=== PATIENT | male | born 1955 | race Caucasian/White ===

== ENCOUNTER 2018-08-26 02:34 | Inpatient (IN) | payer MEDICARE, OTHER ==
[2018-08-26 03:27] LABS: ADD MAN DIFF? NO
[2018-08-26 03:48] LABS: INR 1.07; PT RATIO 1.1
[2018-08-26 03:49] LABS: PARTIAL THROMBOPLASTIN TIME 24.5 Sec (23.0-35.0)
[2018-08-26 03:53] LABS: WHITE BLOOD COUNT 4.6 10^3/ul (4.8-10.8)
[2018-08-26 03:53] LABS: ABNORMAL IP MESSAGE 1; HEMATOCRIT 36.3 % (42.0-52.0); HEMOGLOBIN 12.9 g/dl (14.0-18.0); LYMPHOCYTES # 0.3 10^3/ul (0.8-2.9); LYMPHOCYTES % 6.8 % (15.0-51.0); MEAN CORPUSCULAR HEMOGLOBIN 33.6 pg (29.0-33.0); MEAN CORPUSCULAR HGB CONC 35.5 g/dl (32.0-37.0); MEAN CORPUSCULAR VOLUME 94.5 fl (82.0-101.0); MEAN PLATELET VOLUME 10.7 fl (7.4-10.4); MONOCYTE # 0.2 10^3/ul (0.3-0.9); MONOCYTES % 4.4 % (0.0-11.0); NEUTROPHILS % 87.7 % (39.0-77.0); PLATELET COUNT 63 10^3/UL (140-415); POSITIVE DIFF @See below; RED BLOOD COUNT 3.84 10^6/ul (4.70-6.10); RED CELL DISTRIBUTION WIDTH 15.8 % (11.5-14.5)
[2018-08-26 03:54] LABS: ANION GAP 13 (5-13); BLOOD UREA NITROGEN 20 mg/dl (7-20); CALCIUM 9.1 mg/dl (8.4-10.2); CARBON DIOXIDE 23 mmol/L (21-31); CHLORIDE 97 mmol/L (97-110); CREATININE 1.01 mg/dl (0.61-1.24); Estimated GFR > 60 mL/min (>60); GLUCOSE 128 mg/dl (70-220); POTASSIUM 4.9 mmol/L (3.5-5.1); SODIUM 133 mmol/L (135-144)
[2018-08-26] MEDS: SOD CHLORIDE 0.9% 1,000 ML IV ×3 (03:54→16:44)
[2018-08-26 04:05] LABS: TROPONIN-I < 0.012 ng/ml (0.000-0.120)
[2018-08-26] MEDS ORDERED: DOCUSATE SODIUM 100 MG CAP PO (06:00)
[2018-08-26] MEDS ORDERED: BISACODYL (EC) 5 MG TAB PO (06:00)
[2018-08-26] MEDS ORDERED: NACL 0.9% 3 ML SYG IV (06:00)
[2018-08-26] MEDS: ACETAMINOPHEN 325 MG TAB PO ×3 (06:21→21:42)
[2018-08-26] MEDS: PANTOPRAZOLE (EC) 40 MG TAB PO (06:21)
[2018-08-26] MEDS ORDERED: VANCOMYCIN IV PER PHARMACY XX (07:00)
[2018-08-26 07:53] LABS: LACTIC ACID 2.7 mmol/L (0.5-2.0)
[2018-08-26] MEDS: PIPER-TAZO 3.375 GM IV (PMX) 100 ML IVPB ×3 (08:00→17:29)
[2018-08-26] MEDS ORDERED: HEPARIN 5,000 UNIT/1 ML VIAL SC (09:00)
[2018-08-26] MEDS ORDERED: BIOTIN 10000 MCG PO (09:00)
[2018-08-26] MEDS: VANCOMYCIN HCL 1.75 GM in SOD CHLORIDE 0.9% 500 ML IVPB (10:02)
[2018-08-26] MEDS: LEVOTHYROXINE 50 MCG TAB PO (10:02)
[2018-08-26] MEDS: CALCIUM/VITAMIN D (500/200) TAB PO (10:02)
[2018-08-26] MEDS: CHLORPROMAZINE 25 MG TAB PO ×3 (11:20→21:43)
[2018-08-26] MEDS: PYRIDOXINE 50 MG TAB PO (11:20)
[2018-08-26 12:40] LABS: LACTIC ACID 3.7 mmol/L (0.5-2.0)
[2018-08-26] MEDS: SOD CHLORIDE 0.9% IV (13:22)
[2018-08-26 18:21] LABS: ADD UMIC YES; UR ASCORBIC ACID NEGATIVE (NEGATIVE); UR BILIRUBIN (Dip) NEGATIVE (NEGATIVE); UR BLOOD (Dip) NEGATIVE (NEGATIVE); UR CLARITY CLEAR (CLEAR); UR COLOR YELLOW (YELLOW); UR GLUCOSE (Dip) NEGATIVE (NEGATIVE); UR KETONES (Dip) NEGATIVE (NEGATIVE); UR LEUKOCYTE ESTERASE (Dip) NEGATIVE Leu/ul (NEGATIVE); UR NITRITE (Dip) NEGATIVE (NEGATIVE); UR RBC 3 /HPF (0-5); UR SPECIFIC GRAVITY (Dip) 1.021 (1.003-1.030); UR TOTAL PROTEIN (Dip) 2+ mg/dl (NEGATIVE); UR UROBILINOGEN (Dip) 1+ mg/dL (NEGATIVE); UR WBC 1 /HPF (0-5)
[2018-08-26] MEDS: ATORVASTATIN 80 MG TAB PO (21:42)
[2018-08-26] MEDS: TAMSULOSIN (SR) 0.4 MG CAP PO (21:42)
[2018-08-26] MEDS: VANCOMYCIN 1 GM 250 ML IVPB (21:43)
[2018-08-26] MEDS: SOD CHLORIDE 0.9% 100 ML (23:03)
[2018-08-26] MEDS: IOHEXOL 300MG/ML 150 ML BTL (23:03)
[2018-08-27] MEDS: ALBUTEROL/IPRATROPIUM (NEB) 3 ML AMP HHN (00:06)
[2018-08-27] MEDS: ACETAMINOPHEN 1000MG/100ML IV 100 ML IVPB ×3 (01:00→13:42)
[2018-08-27] MEDS: PIPER-TAZO 3.375 GM IV (PMX) 100 ML IVPB ×4 (01:38→17:47)
[2018-08-27] MEDS: FUROSEMIDE 20 MG INJ IV ×2 (01:39→17:26)
[2018-08-27] MEDS: PANTOPRAZOLE (EC) 40 MG TAB PO (06:47)
[2018-08-27] MEDS: LEVOTHYROXINE 50 MCG TAB PO (06:47)
[2018-08-27 07:02] LABS: ADD MAN DIFF? NO
[2018-08-27 07:14] LABS: ABNORMAL IP MESSAGE 1; HEMATOCRIT 27.9 % (42.0-52.0); HEMOGLOBIN 9.9 g/dl (14.0-18.0); MEAN CORPUSCULAR HGB CONC 35.5 g/dl (32.0-37.0); PLATELET COUNT 68 10^3/UL (140-415); POSITIVE DIFF @See below; RED CELL DISTRIBUTION WIDTH 15.5 % (11.5-14.5)
[2018-08-27 07:14] LABS: WHITE BLOOD COUNT 4.7 10^3/ul (4.8-10.8)
[2018-08-27 07:39] LABS: ALANINE AMINOTRANSFERASE 28 IU/L (13-69); ALBUMIN 2.8 g/dl (3.3-4.9); ALBUMIN/GLOBULIN RATIO 1.12; ALKALINE PHOSPHATASE 71 IU/L (42-121); ANION GAP 8 (5-13); ASPARTATE AMINO TRANSFERASE 36 IU/L (15-46); BILIRUBIN,INDIRECT 0.8 mg/dl (0-1.1); BILIRUBIN,TOTAL 0.8 mg/dl (0.2-1.3); BLOOD UREA NITROGEN 16 mg/dl (7-20); CARBON DIOXIDE 21 mmol/L (21-31); CHLORIDE 97 mmol/L (97-110); CREATININE 0.93 mg/dl (0.61-1.24); Estimated GFR > 60 mL/min (>60); GLUCOSE 122 mg/dl (70-220); MAGNESIUM 1.7 mg/dl (1.7-2.5); POTASSIUM 3.7 mmol/L (3.5-5.1); SODIUM 126 mmol/L (135-144); TOTAL PROTEIN 5.3 g/dl (6.1-8.1)
[2018-08-27 07:44] LABS: HEMOGLOBIN A1C 5.9 % (0-5.9)
[2018-08-27] MEDS: CHLORPROMAZINE 25 MG TAB PO (08:37)
[2018-08-27] MEDS: PYRIDOXINE 50 MG TAB PO (08:37)
[2018-08-27] MEDS: VANCOMYCIN 1 GM 250 ML IVPB ×2 (08:38→21:27)
[2018-08-27] MEDS: CALCIUM/VITAMIN D (500/200) TAB PO (08:38)
[2018-08-27 09:16] LABS: ANISOCYTOSIS 1+ (0-0); BAND NEUTROPHILS % (M) 1 % (0-4); LYMPHOCYTES #M 0.3 10^3/ul (0.8-2.9); LYMPHOCYTES % (M) 8 % (15-51); MONOCYTE #M 0.5 10^3/ul (0.3-0.9); MONOCYTES % (M) 12 % (0-11); PLATELET ESTIMATE DECREASED; POIKILOCYTOSIS 1+ (0-0); SEG NEUT #M 3.7 10^3/ul (1.6-7.5); SEGMENTED NEUTROPHILS (M) % 79 % (39-77); SMUDGE%M 1 % (0-0)
[2018-08-27] MEDS: MAGNESIUM SULFATE 2 GM/50 ML 50 ML IVPB (11:46)
[2018-08-27] MEDS: DEXTROSE 5%-0.45% NACL 1,000 ML IV (11:46)
[2018-08-27 11:49] LABS: LACTIC ACID 2.7 mmol/L (0.5-2.0)
[2018-08-27 12:23] LABS: ANION GAP 8 (5-13); BLOOD UREA NITROGEN 17 mg/dl (7-20); CARBON DIOXIDE 19 mmol/L (21-31); CHLORIDE 98 mmol/L (97-110); CREATININE 0.91 mg/dl (0.61-1.24); Estimated GFR > 60 mL/min (>60); GLUCOSE 122 mg/dl (70-220); POTASSIUM 3.7 mmol/L (3.5-5.1); SODIUM 125 mmol/L (135-144)
[2018-08-27] MEDS: CASPOFUNGIN 70 MG in SOD CHLORIDE 0.9% 250 ML IVPB (16:42)
[2018-08-27] MEDS: DEXTROSE 5%-0.9% NACL 1,000 ML IV (16:42)
[2018-08-27 17:16] LABS: SODIUM,URINE RANDOM 31 mmol/L (30-90)
[2018-08-27 17:32] LABS: CREATINE KINASE 137 IU/L (23-200)
[2018-08-27 17:44] LABS: CK INDEX 0.3; CK-MB 0.35 ng/ml (0.0-2.4); TROPONIN-I < 0.012 ng/ml (0.000-0.120)
[2018-08-27 20:49] LABS: VANCOMYCIN,TROUGH 6.2 ug/ml (10.0-20.0)
[2018-08-27] MEDS: ATORVASTATIN 80 MG TAB PO (21:27)
[2018-08-27] MEDS: TAMSULOSIN (SR) 0.4 MG CAP PO (21:27)
[2018-08-27] MEDS: ACETAMINOPHEN 325 MG TAB PO (21:27)
[2018-08-27] MEDS: SODIUM CHLORIDE 1 GM TAB PO (21:59)
[2018-08-27 23:48] LABS: CREATINE KINASE 157 IU/L (23-200)
[2018-08-27 23:59] LABS: CK INDEX 0.1; CK-MB < 0.22 ng/ml (0.0-2.4); TROPONIN-I < 0.012 ng/ml (0.000-0.120)
[2018-08-28] MEDS: PIPER-TAZO 3.375 GM IV (PMX) 100 ML IVPB ×4 (00:43→17:50)
[2018-08-28] MEDS: VANCOMYCIN 1 GM 250 ML IVPB ×3 (04:43→21:15)
[2018-08-28] MEDS: ACETAMINOPHEN 325 MG TAB PO ×3 (04:44→22:44)
[2018-08-28] MEDS: DEXTROSE 5%-0.9% NACL 1,000 ML IV ×2 (05:20→18:30)
[2018-08-28] MEDS: PANTOPRAZOLE (EC) 40 MG TAB PO (06:00)
[2018-08-28] MEDS: PANTOPRAZOLE 40 MG INJ IV (06:42)
[2018-08-28] MEDS: LEVOTHYROXINE 50 MCG TAB PO ×2 (06:42→09:38)
[2018-08-28 07:06] LABS: ABNORMAL IP MESSAGE 1; HEMATOCRIT 26.3 % (42.0-52.0); HEMOGLOBIN 9.4 g/dl (14.0-18.0); MEAN CORPUSCULAR HGB CONC 35.7 g/dl (32.0-37.0); MEAN CORPUSCULAR VOLUME 92.3 fl (82.0-101.0); MEAN PLATELET VOLUME 11.2 fl (7.4-10.4); PLATELET COUNT 75 10^3/UL (140-415); POSITIVE DIFF @See below; RED BLOOD COUNT 2.85 10^6/ul (4.70-6.10); RED CELL DISTRIBUTION WIDTH 15.2 % (11.5-14.5)
[2018-08-28 07:06] LABS: WHITE BLOOD COUNT 4.4 10^3/ul (4.8-10.8)
[2018-08-28 07:11] LABS: ADD MAN DIFF? YES
[2018-08-28 07:25] LABS: LACTIC ACID 1.4 mmol/L (0.5-2.0)
[2018-08-28 07:56] LABS: ANISOCYTOSIS 1+ (0-0); BAND NEUTROPHILS #M 0.2 10^3/ul (0.0-0.6); BAND NEUTROPHILS % (M) 6 % (0-4); GIANT THROMBO% (M) 2 % (0-0); LYMPHOCYTES #M 0.5 10^3/ul (0.8-2.9); LYMPHOCYTES % (M) 13 % (15-51); MONOCYTE #M 0.4 10^3/ul (0.3-0.9); MONOCYTES % (M) 11 % (0-11); PLATELET ESTIMATE DECREASED; POIKILOCYTOSIS 1+ (0-0); REACTIVE LYMPHOCYTES% (M) 2 % (0-0); SEGMENTED NEUTROPHILS (M) % 68 % (39-77); SMUDGE%M 42 % (0-0); SPHEROCYTES 1+ (0-0)
[2018-08-28] MEDS: IOHEXOL 14.3 MG(I)/ML (ADULT) BTL PO (09:00)
[2018-08-28] MEDS: CALCIUM/VITAMIN D (500/200) TAB PO (09:06)
[2018-08-28] MEDS: PYRIDOXINE 50 MG TAB PO (09:07)
[2018-08-28] MEDS: SODIUM CHLORIDE 1 GM TAB PO ×2 (09:38→21:13)
[2018-08-28] MEDS: OSELTAMIVIR 75 MG CAP PO ×2 (11:34→21:14)
[2018-08-28 12:16] LABS: ANION GAP 6 (5-13); BLOOD UREA NITROGEN 18 mg/dl (7-20); CALCIUM 7.5 mg/dl (8.4-10.2); CARBON DIOXIDE 21 mmol/L (21-31); CHLORIDE 98 mmol/L (97-110); CREATININE 0.82 mg/dl (0.61-1.24); Estimated GFR > 60 mL/min (>60); GLUCOSE 134 mg/dl (70-220); POTASSIUM 3.5 mmol/L (3.5-5.1); SODIUM 125 mmol/L (135-144)
[2018-08-28] MEDS: CASPOFUNGIN 50 MG in SOD CHLORIDE 0.9% 250 ML IVPB (15:47)
[2018-08-28] MEDS: ATORVASTATIN 80 MG TAB PO (21:13)
[2018-08-28] MEDS: TAMSULOSIN (SR) 0.4 MG CAP PO (21:14)
[2018-08-29] MEDS: PIPER-TAZO 3.375 GM IV (PMX) 100 ML IVPB ×2 (00:17→05:07)
[2018-08-29] MEDS: PANTOPRAZOLE (EC) 40 MG TAB PO (05:01)
[2018-08-29] MEDS: PANTOPRAZOLE 40 MG INJ IV (05:07)
[2018-08-29 05:17] LABS: ADD MAN DIFF? NO
[2018-08-29 05:21] LABS: ABNORMAL IP MESSAGE 1; BASOPHILS % 0.2 % (0.0-2.0); EOSINOPHILS % 0.2 % (0.0-7.0); HEMATOCRIT 27.3 % (42.0-52.0); HEMOGLOBIN 9.7 g/dl (14.0-18.0); LYMPHOCYTES # 0.4 10^3/ul (0.8-2.9); LYMPHOCYTES % 8.4 % (15.0-51.0); MEAN CORPUSCULAR HEMOGLOBIN 32.9 pg (29.0-33.0); MEAN CORPUSCULAR HGB CONC 35.5 g/dl (32.0-37.0); MEAN CORPUSCULAR VOLUME 92.5 fl (82.0-101.0); MEAN PLATELET VOLUME 11.2 fl (7.4-10.4); MONOCYTE # 0.6 10^3/ul (0.3-0.9); MONOCYTES % 14.1 % (0.0-11.0); NEUTROPHIL # 3.5 10^3/ul (1.6-7.5); NEUTROPHILS % 76.2 % (39.0-77.0); PLATELET COUNT 108 10^3/UL (140-415); POSITIVE DIFF @See below; RED BLOOD COUNT 2.95 10^6/ul (4.70-6.10); RED CELL DISTRIBUTION WIDTH 15.3 % (11.5-14.5)
[2018-08-29 05:21] LABS: WHITE BLOOD COUNT 4.6 10^3/ul (4.8-10.8)
[2018-08-29 05:29] LABS: VANCOMYCIN,TROUGH 10.5 ug/ml (10.0-20.0)
[2018-08-29 05:36] LABS: INR 1.14; PROTIME 14.7 Sec (11.9-14.9); PT RATIO 1.1
[2018-08-29 05:37] LABS: PARTIAL THROMBOPLASTIN TIME 36.6 Sec (23.0-35.0)
[2018-08-29] MEDS: VANCOMYCIN 1 GM 250 ML IVPB ×2 (05:56→12:09)
[2018-08-29] MEDS: ACETAMINOPHEN 325 MG TAB PO ×3 (05:59→19:08)
[2018-08-29] MEDS: LEVOTHYROXINE 50 MCG TAB PO (06:00)
[2018-08-29 06:04] LABS: ALANINE AMINOTRANSFERASE 34 IU/L (13-69); ALBUMIN 2.6 g/dl (3.3-4.9); ALKALINE PHOSPHATASE 61 IU/L (42-121); ANION GAP 11 (5-13); ASPARTATE AMINO TRANSFERASE 53 IU/L (15-46); BILIRUBIN,INDIRECT 0.7 mg/dl (0-1.1); BILIRUBIN,TOTAL 0.7 mg/dl (0.2-1.3); BLOOD UREA NITROGEN 15 mg/dl (7-20); CALCIUM 7.4 mg/dl (8.4-10.2); CARBON DIOXIDE 19 mmol/L (21-31); CHLORIDE 100 mmol/L (97-110); CREATININE 0.73 mg/dl (0.61-1.24); Estimated GFR > 60 mL/min (>60); GLUCOSE 123 mg/dl (70-220); POTASSIUM 3.5 mmol/L (3.5-5.1); SODIUM 130 mmol/L (135-144); TOTAL PROTEIN 5.2 g/dl (6.1-8.1)
[2018-08-29] MEDS: DEXTROSE 5%-0.9% NACL 1,000 ML IV ×2 (08:00→21:20)
[2018-08-29] MEDS: PYRIDOXINE 50 MG TAB PO (08:42)
[2018-08-29] MEDS: CALCIUM/VITAMIN D (500/200) TAB PO (08:42)
[2018-08-29] MEDS: OSELTAMIVIR 75 MG CAP PO ×2 (08:42→20:14)
[2018-08-29] MEDS: SODIUM CHLORIDE 1 GM TAB PO ×2 (09:00→20:14)
[2018-08-29 12:09] LABS: LIPASE 100 U/L (23-300)
[2018-08-29] MEDS: MEROPENEM 1 GM/50ML(PMX) 50 ML IVPB ×2 (14:35→21:28)
[2018-08-29] MEDS: CASPOFUNGIN 50 MG in SOD CHLORIDE 0.9% 250 ML IVPB (16:00)
[2018-08-29] MEDS: ATORVASTATIN 80 MG TAB PO (20:14)
[2018-08-29] MEDS: TAMSULOSIN (SR) 0.4 MG CAP PO (20:14)
[2018-08-29] MEDS: VANCOMYCIN HCL 1.25 GM in SOD CHLORIDE 0.9% 250 ML IVPB (20:15)
[2018-08-29] MEDS: KETOROLAC 15 MG INJ IV (21:28)
[2018-08-29] MEDS: ONDANSETRON 4 MG INJ IV (23:09)
[2018-08-30] MEDS: ACETAMINOPHEN 325 MG TAB PO ×2 (01:31→21:17)
[2018-08-30] MEDS: PANTOPRAZOLE 40 MG INJ IV (05:09)
[2018-08-30] MEDS: MEROPENEM 1 GM/50ML(PMX) 50 ML IVPB ×3 (05:09→21:07)
[2018-08-30] MEDS: VANCOMYCIN HCL 1.25 GM in SOD CHLORIDE 0.9% 250 ML IVPB ×2 (05:55→14:21)
[2018-08-30] MEDS: LEVOTHYROXINE 50 MCG TAB PO (06:53)
[2018-08-30 08:27] LABS: ADD MAN DIFF? NO
[2018-08-30 08:33] LABS: ABNORMAL IP MESSAGE 1; BASOPHILS % 0.3 % (0.0-2.0); EOSINOPHILS % 0.5 % (0.0-7.0); HEMATOCRIT 30.2 % (42.0-52.0); HEMOGLOBIN 10.6 g/dl (14.0-18.0); LYMPHOCYTES # 0.5 10^3/ul (0.8-2.9); LYMPHOCYTES % 11.8 % (15.0-51.0); MEAN CORPUSCULAR HEMOGLOBIN 33.2 pg (29.0-33.0); MEAN CORPUSCULAR HGB CONC 35.1 g/dl (32.0-37.0); MEAN CORPUSCULAR VOLUME 94.7 fl (82.0-101.0); MEAN PLATELET VOLUME 10.8 fl (7.4-10.4); MONOCYTE # 0.5 10^3/ul (0.3-0.9); MONOCYTES % 13.6 % (0.0-11.0); NEUTROPHIL # 2.8 10^3/ul (1.6-7.5); PLATELET COUNT 143 10^3/UL (140-415); POSITIVE DIFF @See below; RED BLOOD COUNT 3.19 10^6/ul (4.70-6.10); RED CELL DISTRIBUTION WIDTH 15.6 % (11.5-14.5)
[2018-08-30 08:33] LABS: WHITE BLOOD COUNT 3.8 10^3/ul (4.8-10.8)
[2018-08-30] MEDS: OSELTAMIVIR 75 MG CAP PO (08:35)
[2018-08-30] MEDS: SODIUM CHLORIDE 1 GM TAB PO ×2 (08:35→21:07)
[2018-08-30] MEDS: CALCIUM/VITAMIN D (500/200) TAB PO (08:36)
[2018-08-30] MEDS: PYRIDOXINE 50 MG TAB PO (08:36)
[2018-08-30 11:16] LABS: PROCALCITONIN 1.79 ng/mL (<0.10)
[2018-08-30] MEDS: DEXTROSE 5%-0.9% NACL 1,000 ML IV (11:21)
[2018-08-30] MEDS: KETOROLAC 15 MG INJ IV (13:45)
[2018-08-30] MEDS: CASPOFUNGIN 50 MG in SOD CHLORIDE 0.9% 250 ML IVPB (18:08)
[2018-08-30] MEDS: TAMSULOSIN (SR) 0.4 MG CAP PO (21:07)
[2018-08-31] MEDS: SOD CHLORIDE 0.9% 500 ML IV (03:23)
[2018-08-31 04:50] LABS: AADO2 Arterial 57.1 mmHg (7.0-24.0); Allen Test ACCEPTAB; Arterial Base Excess -3.7 mmol/L (-3.0-3); Arterial Blood Gas Oxygen Sat 96.7 mmHG (95.0-98.0); Arterial COHb 0.1 % (0.0-3.0); Arterial Fraction of Oxyhgb 96.3 % (93.0-99.0); Arterial HCO3 19.6 mmol/L (22.0-26.0); Arterial MetHb 0.3 % (0.0-1.5); Arterial pCO2 30.1 mmhg (35-45); MODE NASAL CANNULA; Site Left Radial
[2018-08-31] MEDS: HALOPERIDOL 5 MG INJ IM ×2 (05:12→18:51)
[2018-08-31] MEDS: MEROPENEM 1 GM/50ML(PMX) 50 ML IVPB ×3 (06:36→22:18)
[2018-08-31] MEDS: PANTOPRAZOLE 40 MG INJ IV (06:36)
[2018-08-31] MEDS: LEVOTHYROXINE 50 MCG TAB PO (06:36)
[2018-08-31 08:15] LABS: ADD MAN DIFF? NO
[2018-08-31 08:24] LABS: ABNORMAL IP MESSAGE 1; BASOPHILS % 0.3 % (0.0-2.0); EOSINOPHILS % 0.2 % (0.0-7.0); HEMATOCRIT 31.9 % (42.0-52.0); HEMOGLOBIN 11.3 g/dl (14.0-18.0); LYMPHOCYTES # 0.3 10^3/ul (0.8-2.9); MEAN CORPUSCULAR HEMOGLOBIN 32.9 pg (29.0-33.0); MEAN CORPUSCULAR HGB CONC 35.4 g/dl (32.0-37.0); MEAN PLATELET VOLUME 10.5 fl (7.4-10.4); MONOCYTE # 0.6 10^3/ul (0.3-0.9); MONOCYTES % 9.7 % (0.0-11.0); NEUTROPHIL # 5.5 10^3/ul (1.6-7.5); NEUTROPHILS % 83.7 % (39.0-77.0); PLATELET COUNT 189 10^3/UL (140-415); POSITIVE DIFF @See below; RED BLOOD COUNT 3.43 10^6/ul (4.70-6.10); RED CELL DISTRIBUTION WIDTH 15.8 % (11.5-14.5)
[2018-08-31 08:24] LABS: WHITE BLOOD COUNT 6.6 10^3/ul (4.8-10.8)
[2018-08-31 08:34] LABS: ALANINE AMINOTRANSFERASE 74 IU/L (13-69); ALBUMIN 2.6 g/dl (3.3-4.9); ALBUMIN/GLOBULIN RATIO 1.04; ALKALINE PHOSPHATASE 100 IU/L (42-121); ANION GAP 9 (5-13); ASPARTATE AMINO TRANSFERASE 84 IU/L (15-46); BILIRUBIN,INDIRECT 0.7 mg/dl (0-1.1); BILIRUBIN,TOTAL 0.7 mg/dl (0.2-1.3); BLOOD UREA NITROGEN 13 mg/dl (7-20); CALCIUM 7.9 mg/dl (8.4-10.2); CARBON DIOXIDE 22 mmol/L (21-31); CHLORIDE 100 mmol/L (97-110); CREATININE 0.62 mg/dl (0.61-1.24); Estimated GFR > 60 mL/min (>60); GLUCOSE 116 mg/dl (70-220); POTASSIUM 3.1 mmol/L (3.5-5.1); SODIUM 131 mmol/L (135-144); TOTAL PROTEIN 5.1 g/dl (6.1-8.1)
[2018-08-31 08:36] LABS: MAGNESIUM 1.9 mg/dl (1.7-2.5)
[2018-08-31] MEDS: PYRIDOXINE 50 MG TAB PO (09:07)
[2018-08-31] MEDS: SODIUM CHLORIDE 1 GM TAB PO ×2 (09:07→20:25)
[2018-08-31] MEDS: ALBUTEROL/IPRATROPIUM (NEB) 3 ML AMP HHN ×2 (10:52→18:00)
[2018-08-31 14:46] LABS: PROCALCITONIN 1.98 ng/mL (<0.10)
[2018-08-31] MEDS: SOD CHLORIDE 0.9% 100 ML (19:58)
[2018-08-31] MEDS: IOHEXOL 300MG/ML 150 ML BTL (19:58)
[2018-08-31] MEDS: ONDANSETRON 4 MG INJ IV (20:18)
[2018-08-31] MEDS: OSELTAMIVIR 75 MG CAP PO (20:25)
[2018-08-31] MEDS: TAMSULOSIN (SR) 0.4 MG CAP PO (20:25)
[2018-09-01] MEDS: ALBUTEROL/IPRATROPIUM (NEB) 3 ML AMP HHN (02:05)
[2018-09-01] MEDS: PANTOPRAZOLE 40 MG INJ IV (07:10)
[2018-09-01] MEDS: LEVOTHYROXINE 50 MCG TAB PO (07:10)
[2018-09-01] MEDS: MEROPENEM 1 GM/50ML(PMX) 50 ML IVPB (07:10)
[2018-09-01] MEDS: BENZOCAINE 10% 7 GM GEL MM ×3 (07:10→21:11)
[2018-09-01 07:54] LABS: ANION GAP 9 (5-13); BLOOD UREA NITROGEN 12 mg/dl (7-20); CALCIUM 7.8 mg/dl (8.4-10.2); CARBON DIOXIDE 22 mmol/L (21-31); CHLORIDE 97 mmol/L (97-110); Estimated GFR > 60 mL/min (>60); GLUCOSE 116 mg/dl (70-220); POTASSIUM 3.1 mmol/L (3.5-5.1); SODIUM 128 mmol/L (135-144)
[2018-09-01] MEDS: SODIUM CHLORIDE 1 GM TAB PO ×2 (08:44→21:10)
[2018-09-01] MEDS: PYRIDOXINE 50 MG TAB PO (08:45)
[2018-09-01] MEDS: OSELTAMIVIR 75 MG CAP PO ×2 (08:57→21:10)
[2018-09-01] MEDS: POTASSIUM CHLORIDE (SR) 20 MEQ TAB PO (10:44)
[2018-09-01 12:49] LABS: AMMONIA < 9 umol/l (9-30)
[2018-09-01] MEDS ORDERED: LACTULOSE 30ML CUP PO (14:00)
[2018-09-01] MEDS: TAMSULOSIN (SR) 0.4 MG CAP PO (21:10)
[2018-09-01] MEDS: POTASSIUM CHLORIDE 40 MEQ in SOD CHLORIDE 0.9% 1,000 ML IV (21:11)
[2018-09-01] MEDS: ACETAMINOPHEN 325 MG TAB PO (23:02)
[2018-09-02] MEDS ORDERED: PANTOPRAZOLE (EC) 40 MG TAB PO (06:00)
[2018-09-02] MEDS: LEVOFLOXACIN 500 MG TAB PO (06:14)
[2018-09-02] MEDS: LEVOTHYROXINE 50 MCG TAB PO (06:14)
[2018-09-02 06:46] LABS: ADD MAN DIFF? NO
[2018-09-02 06:49] LABS: WHITE BLOOD COUNT 4.8 10^3/ul (4.8-10.8)
[2018-09-02 06:49] LABS: BASOPHILS % 0.4 % (0.0-2.0); EOSINOPHILS % 0.2 % (0.0-7.0); HEMATOCRIT 29.3 % (42.0-52.0); HEMOGLOBIN 10.2 g/dl (14.0-18.0); LYMPHOCYTES # 0.8 10^3/ul (0.8-2.9); LYMPHOCYTES % 17.7 % (15.0-51.0); MEAN CORPUSCULAR HGB CONC 34.8 g/dl (32.0-37.0); MEAN CORPUSCULAR VOLUME 94.8 fl (82.0-101.0); MEAN PLATELET VOLUME 9.9 fl (7.4-10.4); MONOCYTE # 0.7 10^3/ul (0.3-0.9); MONOCYTES % 14.5 % (0.0-11.0); NEUTROPHIL # 3.2 10^3/ul (1.6-7.5); NEUTROPHILS % 66.8 % (39.0-77.0); PLATELET COUNT 183 10^3/UL (140-415); RED BLOOD COUNT 3.09 10^6/ul (4.70-6.10); RED CELL DISTRIBUTION WIDTH 17.4 % (11.5-14.5)
[2018-09-02 07:13] LABS: ANION GAP 7 (5-13); BLOOD UREA NITROGEN 10 mg/dl (7-20); CARBON DIOXIDE 23 mmol/L (21-31); CHLORIDE 105 mmol/L (97-110); CREATININE 0.54 mg/dl (0.61-1.24); Estimated GFR > 60 mL/min (>60); GLUCOSE 91 mg/dl (70-220); POTASSIUM 3.8 mmol/L (3.5-5.1); SODIUM 135 mmol/L (135-144)
[2018-09-02] MEDS: POTASSIUM CHLORIDE 40 MEQ in SOD CHLORIDE 0.9% 1,000 ML IV ×2 (07:29→08:43)
[2018-09-02] MEDS: PYRIDOXINE 50 MG TAB PO (08:44)
[2018-09-02] MEDS: OSELTAMIVIR 75 MG CAP PO (08:44)
[2018-09-02] MEDS: SODIUM CHLORIDE 1 GM TAB PO ×2 (08:44→20:16)
[2018-09-02] MEDS: BENZOCAINE 10% 7 GM GEL MM ×2 (08:44→20:16)
[2018-09-02] MEDS: TAMSULOSIN (SR) 0.4 MG CAP PO (20:16)
[2018-09-02] MEDS: ONDANSETRON 4 MG INJ IV (20:53)
[2018-09-02] MEDS: ALBUTEROL/IPRATROPIUM (NEB) 3 ML AMP HHN (20:56)
[2018-09-02] MEDS: ACETAMINOPHEN 325 MG TAB PO (22:52)
[2018-09-03] MEDS: POTASSIUM CHLORIDE 40 MEQ in SOD CHLORIDE 0.9% 1,000 ML IV ×3 (00:56→20:31)
[2018-09-03] MEDS: ALBUTEROL/IPRATROPIUM (NEB) 3 ML AMP HHN ×5 (05:03→20:08)
[2018-09-03] MEDS: LEVOTHYROXINE 50 MCG TAB PO (06:22)
[2018-09-03] MEDS: LEVOFLOXACIN 500 MG TAB PO (06:22)
[2018-09-03] MEDS: BENZOCAINE 10% 7 GM GEL MM ×2 (08:30→20:29)
[2018-09-03] MEDS: PYRIDOXINE 50 MG TAB PO (08:30)
[2018-09-03] MEDS: SODIUM CHLORIDE 1 GM TAB PO (08:30)
[2018-09-03] MEDS: ENOXAPARIN 40 MG/0.4 ML SYG SC (08:38)
[2018-09-03] MEDS: TAMSULOSIN (SR) 0.4 MG CAP PO (20:31)
[2018-09-04] MEDS: ALBUTEROL/IPRATROPIUM (NEB) 3 ML AMP HHN ×2 (01:30→05:34)
[2018-09-04] MEDS: LEVOTHYROXINE 50 MCG TAB PO (08:03)
[2018-09-04] MEDS: POTASSIUM CHLORIDE 40 MEQ in SOD CHLORIDE 0.9% 1,000 ML IV (08:03)
[2018-09-04] MEDS: SODIUM CHLORIDE 1 GM TAB PO (08:44)
[2018-09-04] MEDS: BENZOCAINE 10% 7 GM GEL MM (08:44)
[2018-09-04] MEDS: ENOXAPARIN 40 MG/0.4 ML SYG SC (08:47)
[2018-09-04] MEDS: PYRIDOXINE 50 MG TAB PO (08:49)
== END 2018-09-04 10:15 | disposition home health service (06) | DRG 871 ==
LOC: E/R 02:34 → TEL 05:20
DX: A41.9 Sepsis, unspecified organism (principal); J18.9 Pneumonia, unspecified organism; D61.810 Antineoplastic chemotherapy induced pancytopenia; C18.9 Malignant neoplasm of colon, unspecified; C78.7 Secondary malignant neoplasm of liver and intrahepatic bile duct; C79.31 Secondary malignant neoplasm of brain; E87.1 Hypo-osmolality and hyponatremia; C78.00 Secondary malignant neoplasm of unspecified lung; N17.9 Acute kidney failure, unspecified; E87.6 Hypokalemia; G93.89 Other specified disorders of brain; R13.19 Other dysphagia; R53.81 Other malaise; R29.810 Facial weakness; I10 Essential (primary) hypertension; E78.5 Hyperlipidemia, unspecified; N40.0 Benign prostatic hyperplasia without lower urinary tract symptoms; D69.6 Thrombocytopenia, unspecified; E03.9 Hypothyroidism, unspecified
CPT/HCPCS: 36415; 36600; 70450; 70551; 71045; 71260; 74177; 80048; 80053; 80202; 81001; 82140; 82550; 82553; 82803; 83036; 83605; 83690; 83735; 84145; 84300; 84443; 84484; 85025; 85610; 85730; 86850; 86900; 86901; 86920; 87040; 87075; 87081; 87086; 93005; 93306; 93970; 94640; 94664; 96360; 97110; 97116; 97162; 97167; 97530; 99285-25; G0378